=== PATIENT | female | born 1990 | race Caucasian/White ===

== ENCOUNTER → 2016-10-11 | Outpatient (CLI) | payer BC, OTHER ==
[~2016-10-11] MED LIST: BCPILLS PO; IBUP-1050 PO; MULT-513 PO
== END | disposition home or self-care (01) ==
LOC: C.RDSM 14:14
PROVIDERS: ATTEND Orthopaedic Surgery Sports Medicine
DX: S83.511A Sprain of anterior cruciate ligament of right knee, initial encounter (principal); X58.XXXA Exposure to other specified factors, initial encounter

== ENCOUNTER → 2016-10-18 | Outpatient (CLI) | payer BC, OTHER ==
--- NOTE | 2016-10-18 13:59 | DIAGNOSTIC IMAGING REPORT ---
MRI OF THE RIGHT KNEE CLINICAL HISTORY: Right knee pain and swelling. No reported history of recent trauma. COMPARISON STUDY: Progressive the right knee dated 10/11/2016. TECHNIQUE: MRI of the right knee was performed utilizing proton density, T1, and T2-weighted sequences in the axial, sagittal, coronal planes. IV contrast was not administered for this examination. FINDINGS: Menisci: The medial and lateral menisci are intact. Ligaments: There are postoperative changes from graft repair of the anterior cruciate ligament. The graft appears intact. The posterior cruciate ligament is normal in appearance. The medial and lateral collateral ligaments are within normal limits. Extensor mechanism: The extensor mechanism is intact. Hoffa's fat pad is normal in appearance. Articular cartilage and bone: The articular cartilage is intact and well maintained all 3 compartments. There is mild marrow edema within the inferior aspect of the lateral patellar facet. The overlying cartilage appears intact. No additional foci of marrow edema are identified. Joint effusion: None Soft tissues: The musculature surrounding the knee joint is normal in bulk and signal intensity. IMPRESSION: 1. There are postoperative changes from graft repair of the anterior cruciate ligament. The graft is intact. 2. The menisci and the cruciate ligaments are maintained. 3. There is nonspecific focal marrow edema identified within the inferior aspect of the lateral patellar facet. The bony structures are otherwise normal in appearance. Electronically signed by: Ricky Cervantes M.D. 10/18/2016 1:58 PM Dictated Date/Time: 10/18/2016 1:51 PM
== END | disposition home or self-care (01) ==
LOC: C.MRIBC 12:12
PROVIDERS: ATTEND Orthopaedic Surgery Sports Medicine
DX: M25.561 Pain in right knee (principal); R60.0 Localized edema